=== PATIENT | female | born 1965 | race Hispanic/Latino ===

== ENCOUNTER 2018-09-15 07:57 | Observation (INO) | payer BC ==
[2018-09-13 08:52] LABS: BASOPHILS % (AUTO) 0.5 % (0.0-5.0); EOSINOPHILS % (AUTO) 2.6 % (0.0-8.0); HEMATOCRIT 40.5 % (36-48); LYMPHOCYTES % (AUTO) 23.5 % (21.0-51.0); MEAN CORPUSCULAR HEMOGLOBIN 30.6 pg (27.0-33.0); MEAN CORPUSCULAR HGB CONC 33.9 g/dL (32.0-36.0); MEAN CORPUSCULAR VOLUME 90.4 fL (79-99); MONOCYTES % (AUTO) 6.7 % (3.0-13.0); NEUTROPHILS % (AUTO) 66.7 % (40.0-77.0); NUCLEATED RED BLOOD CELLS 0.1 % (0.0-0.19); PLATELET COUNT (AUTO) 230 K/uL (130-400); RED BLOOD CELL COUNT(AUTO) 4.48 MIL/uL (4.00-5.50); RED CELL DISTRIBUTION WIDTH 12.9 % (11.0-15.5); WHITE BLOOD COUNT (AUTO) 6.5 K/uL (4.8-10.8)
[2018-09-13 08:53] VITALS: BP 101/58
[2018-09-13 08:59] LABS: CREATININE 0.8 mg/dL (0.5-1.5); POTASSIUM 4.6 mmol/L (3.5-5.1)
[2018-09-13 09:09] LABS: PARTIAL THROMBOPLASTIN TIME 32.2 SEC (26.3-35.5); PROTHROMBIN TIME 10.5 SEC (9.6-11.6)
[2018-09-15] VITALS (11 sets, daily range): BP systolic 89–118; BP diastolic 51–67
[~2018-09-15] VITALS: Ht 160 cm; Wt 79.7 kg
[2018-09-15] MEDS ORDERED: SODIUM CHLORIDE 0.9% 1000ML 1,000 ML IV ONE (09:20)
[2018-09-15] MEDS ORDERED: HEPARIN SODIUM 1000UNIT/ML 10ML VIAL ONE ×2 (11:01→13:15)
[2018-09-15] MEDS ORDERED: LIDOCAINE HCL 2% 20ML ONE ×2 (11:01→11:19)
[2018-09-15] MEDS ORDERED: MEPERIDINE-PF 25 MG/ML SYG ONE ×6 (11:02→15:29)
[2018-09-15] MEDS ORDERED: MIDAZOLAM HCL 1 MG/ML 2ML VIAL ONE ×6 (11:02→15:29)
[2018-09-15] MEDS ORDERED: ISOPROTERENOL HCL 0.2 MG/ML AMP/VIAL/BAG ONE (11:29)
[2018-09-15] MEDS ORDERED: ADENOSINE 3 MG/ML 2ML VIAL IV ONE ×3 (12:02→16:09)
[2018-09-15] MEDS ORDERED: ADENOSINE 90MG/30ML VIAL IV ONE (16:17)
[2018-09-15] MEDS ORDERED: PROTAMINE SULFATE 10 MG/ML 25ML VIAL IV ONE (16:23)
[2018-09-15] MEDS ORDERED: ASPI-891 PO (17:09)
[2018-09-15] MEDS ORDERED: ACETAMINOPHEN 325 MG TAB PO PRN (17:15)
[2018-09-15] MEDS ORDERED: ACETAMINOPHEN-CODEINE 300/30MG TAB PO PRN (17:15)
[2018-09-15] MEDS ORDERED: ASPIRIN 325MG EC TAB 325 MG TABLET.DR PO SCH (17:15)
[2018-09-15] MEDS ORDERED: MORPHINE SULFATE 4 MG/1ML SYG IVP PRN (18:15)
[2018-09-15] MEDS ORDERED: MORPHINE SULFATE 4 MG/1ML SYG IV PRN (18:15)
[2018-09-15] MEDS ORDERED: ACETAMINOPHEN-CODEINE 300/30MG TAB ONE (22:46)
[2018-09-15] MEDS: ACETAMINOPHEN-CODEINE 300/30MG TAB PO PRN (22:48)
[2018-09-16 03:00] VITALS: BP 97/56
[2018-09-16] MEDS ORDERED: ACETAMINOPHEN-CODEINE 300/30MG TAB ONE (04:01)
[2018-09-16] MEDS: ACETAMINOPHEN-CODEINE 300/30MG TAB PO PRN ×2 (04:05→13:59)
[2018-09-16 07:42] VITALS: BP 90/51
[2018-09-16] MEDS ORDERED: ASPIRIN 325MG EC TAB 325 MG TABLET.DR PO SCH (09:00)
[2018-09-16 11:34] VITALS: BP 100/60
== END 2018-09-16 15:05 | disposition home or self-care (01) ==
LOC: DAH 07:57 → 2DH 17:01 → DAH 18:02
PROVIDERS: ADMIT Internal Medicine; ATTEND Internal Medicine
DX: I47.2 Ventricular tachycardia (principal); F90.9 Attention-deficit hyperactivity disorder, unspecified type; G89.29 Other chronic pain; M54.5 Low back pain; Z83.3 Family history of diabetes mellitus; Z82.49 Family history of ischemic heart disease and other diseases of the circulatory system; Z79.01 Long term (current) use of anticoagulants
CPT/HCPCS: 36415 ×2; 80048; 85025; 85347 ×7; 85610; 85730; 93005 ×2; 93462; 93613; 93621; 93653; 93655; 93662; 96374; A4215; A4606; A4649; C1730 ×5; C1732; C1893; C1894 ×6; G0378 ×22; J0153 ×4; J1644 ×4; J2175 ×6; J2250 ×6; J2270; J2720; J3490 ×3; J7030; 99156; 99157